=== PATIENT | female | born 1940 | race Caucasian/White ===

== ENCOUNTER 2022-08-26 12:59 | Observation (INO) | payer MEDICARE, OTHER ==
[2022-08-26] MEDS ORDERED: Ondansetron 4 MG/2 ML SDV IVPUSH ONE (13:33)
[2022-08-26] MEDS ORDERED: Sodium Chloride 0.9% 2.5 ML Syringe FLUSH PRN (13:33)
[2022-08-26] MEDS ORDERED: Sodium Chloride 0.9% 10 ML Syringe FLUSH PRN (13:33)
[2022-08-26 14:48] LABS: BLOOD UREA NITROGEN,BUN 18 mg/dL (7.0-18.0); CARBON DIOXIDE,CO2 22.8 mmol/L (21.0-32.0); CHLORIDE,CL 97 mmol/L (98-107); GLUCOSE RANDOM 171 mg/dL (74-106); POTASSIUM,K 4.2 mmol/L (3.5-5.1); SODIUM,NA 132 mmol/L (136-145)
[2022-08-26 14:51] LABS: ESTIMATED GFR 74 mL/min (>60)
[2022-08-26] MEDS ORDERED: cefTRIAXone 1 GM in Sodium Chloride 0.9% 50 ML IV SCH (16:30)
[2022-08-26] MEDS ORDERED: Polyethylene Glycol 3350 Powder 17 GM Packet PO PRN (17:56)
[2022-08-26] MEDS ORDERED: 50% Dextrose in Water 50 ML Syringe IVPUSH PRN (17:59)
[2022-08-26] MEDS ORDERED: Glucagon,Human Recombinant 1 MG Vial IM PRN (17:59)
[2022-08-26] MEDS ORDERED: Albuterol/Ipratropium 3.0-0.5 MG/3 ML Neb Soln NEB PRN (18:00)
[2022-08-26] MEDS ORDERED: Ondansetron 4 MG/2 ML SDV IVPUSH PRN (18:00)
[2022-08-26] MEDS: Insulin Aspart 100 Units/ML 3 ML Pen SUBCUT SCH (18:58)
[2022-08-26] MEDS: Enoxaparin 40 MG/0.4 ML Syringe SUBCUT SCH (18:59)
[2022-08-26] MEDS: Sodium Chloride 0.9% 1,000 ML IV SCH (19:01)
[2022-08-27] MEDS: Sodium Chloride 0.9% 1,000 ML IV SCH ×2 (04:14→11:05)
[2022-08-27] MEDS: Acetaminophen 325 MG Tab PO PRN ×2 (04:14→16:36)
[2022-08-27 06:43] LABS: CARBON DIOXIDE,CO2 22.5 mmol/L (21.0-32.0); POTASSIUM,K 3.7 mmol/L (3.5-5.1)
[2022-08-27] MEDS: Insulin Aspart 100 Units/ML 3 ML Pen SUBCUT SCH ×3 (07:02→18:24)
[2022-08-27] MEDS: Lactated Ringers 1,000 ML IV SCH ×2 (11:01→19:35)
[2022-08-27] MEDS ORDERED: Aspirin 81 MG Tab.Chew PO SCH (15:30)
[2022-08-27] MEDS ORDERED: cefTRIAXone 1 GM in Sodium Chloride 0.9% 50 ML IV SCH (17:00)
[2022-08-27] MEDS: Enoxaparin 40 MG/0.4 ML Syringe SUBCUT SCH (17:07)
[2022-08-28] MEDS: Lactated Ringers 1,000 ML IV SCH ×3 (00:14→10:23)
[2022-08-28] MEDS: Acetaminophen 325 MG Tab PO PRN (05:05)
[2022-08-28 06:28] LABS: CARBON DIOXIDE,CO2 25.2 mmol/L (21.0-32.0); POTASSIUM,K 4.1 mmol/L (3.5-5.1)
[2022-08-28] MEDS ORDERED: Levothyroxine 100 MCG Tab PO SCH (07:30)
[2022-08-28] MEDS: Insulin Aspart 100 Units/ML 3 ML Pen SUBCUT SCH (08:21)
[2022-08-29] MEDS ORDERED: BIMATOPROST EYEBOTH SCH (09:00)
[2022-08-29] MEDS ORDERED: Cholecalciferol (Vitamin D3) 25 MCG Tab PO SCH (09:00)
== END 2022-08-28 13:00 | disposition home or self-care (01) ==
LOC: MW.ED 12:59 → MW.MS 17:05
PROVIDERS: ADMIT Internal Medicine; ATTEND Internal Medicine
DX: N30.00 Acute cystitis without hematuria (principal); I10 Essential (primary) hypertension; E78.00 Pure hypercholesterolemia, unspecified; E03.9 Hypothyroidism, unspecified; E11.9 Type 2 diabetes mellitus without complications; H40.9 Unspecified glaucoma; D72.829 Elevated white blood cell count, unspecified; K52.9 Noninfective gastroenteritis and colitis, unspecified; I63.9 Cerebral infarction, unspecified; Z79.899 Other long term (current) drug therapy; Z79.890 Hormone replacement therapy; Z79.84 Long term (current) use of oral hypoglycemic drugs; Z79.82 Long term (current) use of aspirin; Z88.4 Allergy status to anesthetic agent; Z20.822 Contact with and (suspected) exposure to COVID-19; W19.XXXA Unspecified fall, initial encounter
CPT/HCPCS: 36415; 70450; 80053; 81001; 82947; 84484; 85025; 87086; 87088; 87186; 93005; 97110; 97161; 97530; A9270; J0696; J1650; J1815; J2405; J3490; J7030; J7120; U0002; 96365; 96375; 99217; 99218; 99225; 99285-25

== ENCOUNTER 2024-06-03 10:32 | Inpatient (IN) | payer MEDICARE, OTHER ==
[2024-06-03 11:34] LABS: BASOPHILS ABSOLUTE AUTO 0.06 K/uL (0.00-0.20); BASOPHILS PERCENT AUTO 0.4 % (0.0-1.0); EOSINOPHILS ABSOLUTE AUTO 0.03 K/uL (0.00-0.45); EOSINOPHILS PERCENT AUTO 0.2 % (0.0-6.0); HEMATOCRIT 41.6 % (37.0-47.0); HEMOGLOBIN 13.4 g/dL (12.0-16.0); IMMATURE GRAN ABSOLUTE AUTO 0.23 K/uL (0.00-0.05); IMMATURE GRAN PERCENT AUTO 1.3 % (0.0-0.4); LYMPHOCYTES PERCENT AUTO 5.3 % (24.0-44.0); MEAN CORPUSCULAR HEMOGLOBIN 26.7 pg (28.0-32.0); MEAN CORPUSCULAR HGB CONC 32.2 g/dL (32.0-36.0); MEAN CORPUSCULAR VOLUME 82.9 fL (83.0-99.0); MEAN PLATELET VOLUME 8.8 fL (9.4-12.3); MONOCYTES ABSOLUTE AUTO 1.12 K/uL (0.00-0.80); MONOCYTES PERCENT AUTO 6.5 % (0.0-8.0); NEUTROPHILS ABSOLUTE AUTO 14.78 K/uL (1.80-7.70); NEUTROPHILS PERCENT AUTO 86.3 % (41.0-71.0); PLATELET COUNT,PLT 334 K/uL (150-400); RED BLOOD CELL COUNT 5.02 M/uL (4.10-5.30); WHITE BLOOD CELL COUNT,WBC 17.12 K/uL (3.9-11.3)
[2024-06-03] MEDS: Sodium Chloride 0.9% 1,000 ML IV ONE ×2 (12:02→14:43)
[2024-06-03 12:03] LABS: A/G RATIO 0.7 (0.9-1.6); ALBUMIN 3.4 g/dL (3.4-5.0); BILIRUBIN TOTAL 0.6 mg/dL (0.2-1.0); CARBON DIOXIDE,CO2 25.2 mmol/L (21.0-32.0); CREATININE 1.4 mg/dL (0.6-1.0); EST CRCL DRUG DOSING (CG) 26.92 mL/min; MAGNESIUM 2.2 mg/dL (1.8-2.4); POTASSIUM,K 4.9 mmol/L (3.5-5.1); PROTEIN TOTAL,TP 8.1 g/dL (6.4-8.2)
[2024-06-03] MEDS: Ondansetron 4 MG/2 ML SDV IVPUSH ONE (12:03)
[2024-06-03] MEDS: Morphine 2 MG/ML SYRINGE IVPUSH ONE (12:05)
[2024-06-03 12:18] LABS: CORONAVIRUS COVID-19 NAA NEGATIVE (NEGATIVE); INFLUENZA A NAA NEGATIVE (NEGATIVE); INFLUENZA B NAA NEGATIVE (NEGATIVE); RESPIRATORY SYNCYTIAL VIR NAA NEGATIVE (NEGATIVE)
[2024-06-03] MEDS: Iopamidol 755 MG/ML 500 ML Multipack Bottle IVPUSH STA (12:56)
[2024-06-03] MEDS: Acetaminophen 500 MG Tab PO ONE (13:03)
[2024-06-03 13:26] LABS: APPEARANCE,URINE CLOUDY; BILIRUBIN,URINE NEGATIVE (NEGATIVE); COLOR,URINE YELLOW; GLUCOSE,URINE NEGATIVE (NEGATIVE); KETONES,URINE NEGATIVE (NEGATIVE); LEUKOCYTE ESTERASE,URINE SMALL (NEGATIVE); NITRITE,URINE NEGATIVE (NEGATIVE); OCCULT BLOOD,URINE NEGATIVE (NEGATIVE); PH,URINE 5.5 (5.0-8.0); PROTEIN,URINE NEGATIVE (NEGATIVE); UROBILINOGEN,URINE 0.2 EU/dL (<2.0)
[2024-06-03 13:37] LABS: BACTERIA,URINE 2+ (NEGATIVE); EPITHELIAL CELLS,URINE MANY (NONE-FEW); RBC,URINE 0-1 (0-2/HPF)
[2024-06-03 14:01] LABS: LACTIC ACID 2.4 mmol/L (0.4-2.0)
[2024-06-03] MEDS: Piperacillin/Tazobactam 3.375 GM in Sodium Chloride 0.9% 100 ML IV ONE (14:44)
[2024-06-03] MEDS: VANCOmycin 1.5 GM/300 ML 1.5 GM in Premix Bag 1 BAG IV ONE (15:14)
[2024-06-03] MEDS ORDERED: Naloxone 0.4 MG/ML SDV IVPUSH PRN (17:49)
[2024-06-03] MEDS ORDERED: Acetaminophen 650 MG Supp RECTAL PRN (17:49)
[2024-06-03] MEDS ORDERED: Morphine 2 MG/ML SYRINGE IVPUSH PRN (17:49)
[2024-06-03] MEDS: Piperacillin/Tazobactam 4.5 GM in Sodium Chloride 0.9% 100 ML IV SCH (18:31)
[2024-06-03] MEDS: Sodium Chloride 0.9% 1,000 ML IV SCH (18:32)
[2024-06-03] MEDS: Non-Formulary Medication 1 Each (Simvastatin 20 MG Tablet) PO SCH (20:15)
[2024-06-03] MEDS: Melatonin 3 MG Tab PO PRN (20:46)
[2024-06-03] MEDS: Acetaminophen/oxyCODONE 325-5 MG Tab PO PRN (20:46)
[2024-06-03] MEDS: Pantoprazole 40 MG in Sodium Chloride 0.9% 10 ML IVPUSH SCH (20:46)
[2024-06-04] MEDS: Ondansetron 4 MG/2 ML SDV IVPUSH PRN (02:43)
[2024-06-04] MEDS ORDERED: Non-Formulary Medication 1 Each (Levothyroxine [Synthroid] 100 MCG Tablet) PO SCH (07:30)
[2024-06-04] MEDS: Levothyroxine 100 MCG Tab PO SCH (07:37)
[2024-06-04 08:01] LABS: BASOPHILS ABSOLUTE AUTO 0.04 K/uL (0.00-0.20); BASOPHILS PERCENT AUTO 0.3 % (0.0-1.0); EOSINOPHILS ABSOLUTE AUTO 0.07 K/uL (0.00-0.45); EOSINOPHILS PERCENT AUTO 0.6 % (0.0-6.0); HEMATOCRIT 31.6 % (37.0-47.0); HEMOGLOBIN 10.3 g/dL (12.0-16.0); IMMATURE GRAN ABSOLUTE AUTO 0.04 K/uL (0.00-0.05); IMMATURE GRAN PERCENT AUTO 0.3 % (0.0-0.4); LYMPHOCYTES ABSOLUTE AUTO 0.96 K/uL (1.00-4.80); LYMPHOCYTES PERCENT AUTO 7.9 % (24.0-44.0); MEAN CORPUSCULAR HEMOGLOBIN 26.9 pg (28.0-32.0); MEAN CORPUSCULAR HGB CONC 32.6 g/dL (32.0-36.0); MEAN CORPUSCULAR VOLUME 82.5 fL (83.0-99.0); MEAN PLATELET VOLUME 8.8 fL (9.4-12.3); MONOCYTES ABSOLUTE AUTO 0.96 K/uL (0.00-0.80); MONOCYTES PERCENT AUTO 7.9 % (0.0-8.0); NEUTROPHILS ABSOLUTE AUTO 10.02 K/uL (1.80-7.70); PLATELET COUNT,PLT 227 K/uL (150-400); RED BLOOD CELL COUNT 3.83 M/uL (4.10-5.30); WHITE BLOOD CELL COUNT,WBC 12.09 K/uL (3.9-11.3)
[2024-06-04 08:27] LABS: A/G RATIO 0.7 (0.9-1.6); ALBUMIN 2.8 g/dL (3.4-5.0); BILIRUBIN TOTAL 0.4 mg/dL (0.2-1.0); CALCIUM 9.1 mg/dL (8.5-10.1); CREATININE 0.8 mg/dL (0.6-1.0); EST CRCL DRUG DOSING (CG) 47.1 mL/min; MAGNESIUM 2.1 mg/dL (1.8-2.4); POTASSIUM,K 4.5 mmol/L (3.5-5.1); PROTEIN TOTAL,TP 6.8 g/dL (6.4-8.2)
[2024-06-04] MEDS: BIMATOPROST EYEBOTH SCH (08:37)
[2024-06-04] MEDS: TIMOLOL MALEATE EYEBOTH SCH (08:37)
[2024-06-04] MEDS: Lisinopril 10 MG Tab PO SCH (08:49)
[2024-06-04] MEDS: Heparin Sodium 5,000 Units/ML Vial IVPUSH SCH (09:58)
[2024-06-04] MEDS: Heparin Sodium 5,000 Units/ML Vial SUBCUT SCH (10:00)
[2024-06-04] MEDS: VANCOmycin 1.5 GM/300 ML 1.5 GM in Premix Bag 1 BAG IV SCH (17:18)
[2024-06-04] MEDS: atorvaSTATin 10 MG Tab PO SCH (20:23)
[2024-06-05 08:17] LABS: BASOPHILS ABSOLUTE AUTO 0.04 K/uL (0.00-0.20); BASOPHILS PERCENT AUTO 0.4 % (0.0-1.0); EOSINOPHILS ABSOLUTE AUTO 0.09 K/uL (0.00-0.45); HEMATOCRIT 31.2 % (37.0-47.0); HEMOGLOBIN 10.2 g/dL (12.0-16.0); IMMATURE GRAN ABSOLUTE AUTO 0.04 K/uL (0.00-0.05); IMMATURE GRAN PERCENT AUTO 0.4 % (0.0-0.4); LYMPHOCYTES PERCENT AUTO 10.8 % (24.0-44.0); MEAN CORPUSCULAR HEMOGLOBIN 27.2 pg (28.0-32.0); MEAN CORPUSCULAR HGB CONC 32.7 g/dL (32.0-36.0); MEAN CORPUSCULAR VOLUME 83.2 fL (83.0-99.0); MEAN PLATELET VOLUME 8.8 fL (9.4-12.3); MONOCYTES ABSOLUTE AUTO 0.56 K/uL (0.00-0.80); NEUTROPHILS ABSOLUTE AUTO 7.56 K/uL (1.80-7.70); NEUTROPHILS PERCENT AUTO 81.4 % (41.0-71.0); PLATELET COUNT,PLT 221 K/uL (150-400); RED BLOOD CELL COUNT 3.75 M/uL (4.10-5.30); WHITE BLOOD CELL COUNT,WBC 9.29 K/uL (3.9-11.3)
[2024-06-05 08:40] LABS: A/G RATIO 0.6 (0.9-1.6); ALBUMIN 2.7 g/dL (3.4-5.0); BILIRUBIN TOTAL 0.5 mg/dL (0.2-1.0); CALCIUM 8.8 mg/dL (8.5-10.1); CREATININE 0.9 mg/dL (0.6-1.0); EST CRCL DRUG DOSING (CG) 41.87 mL/min
[2024-06-05 08:44] LABS: CARBON DIOXIDE,CO2 23.5 mmol/L (21.0-32.0)
[2024-06-05] MEDS ORDERED: Glucagon,Human Recombinant 1 MG Vial IM PRN (08:55)
[2024-06-05] MEDS ORDERED: 50% Dextrose in Water 50 ML Syringe IVPUSH PRN (08:55)
[2024-06-05] MEDS: Acetaminophen 325 MG Tab PO PRN (08:58)
[2024-06-05] MEDS: Insulin Aspart 100 Units/ML 3 ML Pen SUBCUT SCH (11:30)
[2024-06-05] MEDS: Polyethylene Glycol 3350 Powder 17 GM Packet PO PRN (14:16)
[2024-06-05] MEDS: BIMATOPROST EYEBOTH SCH (20:21)
[2024-06-06 06:00] LABS: BASOPHILS ABSOLUTE AUTO 0.03 K/uL (0.00-0.20); BASOPHILS PERCENT AUTO 0.3 % (0.0-1.0); EOSINOPHILS ABSOLUTE AUTO 0.14 K/uL (0.00-0.45); EOSINOPHILS PERCENT AUTO 1.6 % (0.0-6.0); HEMATOCRIT 30.6 % (37.0-47.0); HEMOGLOBIN 9.9 g/dL (12.0-16.0); IMMATURE GRAN ABSOLUTE AUTO 0.03 K/uL (0.00-0.05); IMMATURE GRAN PERCENT AUTO 0.3 % (0.0-0.4); LYMPHOCYTES ABSOLUTE AUTO 1.15 K/uL (1.00-4.80); LYMPHOCYTES PERCENT AUTO 13.4 % (24.0-44.0); MEAN CORPUSCULAR HEMOGLOBIN 26.3 pg (28.0-32.0); MEAN CORPUSCULAR HGB CONC 32.4 g/dL (32.0-36.0); MEAN CORPUSCULAR VOLUME 81.2 fL (83.0-99.0); MEAN PLATELET VOLUME 8.4 fL (9.4-12.3); MONOCYTES ABSOLUTE AUTO 0.71 K/uL (0.00-0.80); MONOCYTES PERCENT AUTO 8.3 % (0.0-8.0); NEUTROPHILS ABSOLUTE AUTO 6.54 K/uL (1.80-7.70); NEUTROPHILS PERCENT AUTO 76.1 % (41.0-71.0); PLATELET COUNT,PLT 213 K/uL (150-400); RED BLOOD CELL COUNT 3.77 M/uL (4.10-5.30)
[2024-06-06 06:48] LABS: A/G RATIO 0.6 (0.9-1.6); ALBUMIN 2.5 g/dL (3.4-5.0); BILIRUBIN TOTAL 0.5 mg/dL (0.2-1.0); CALCIUM 9.1 mg/dL (8.5-10.1); CARBON DIOXIDE,CO2 24.8 mmol/L (21.0-32.0); CREATININE 0.7 mg/dL (0.6-1.0); EST CRCL DRUG DOSING (CG) 53.83 mL/min; PROTEIN TOTAL,TP 6.7 g/dL (6.4-8.2)
[2024-06-06] MEDS: TIMOLOL MALEATE EYEBOTH SCH (08:16)
[2024-06-06] MEDS: Amoxicillin/Clavulanate K 875-125 MG Tab PO ONE (10:50)
== END 2024-06-06 15:00 | disposition home health service (06) | DRG 392 ==
LOC: MW.ED 10:32 → MW.MS 17:27
PROVIDERS: ADMIT Family Medicine; ATTEND Family Medicine
DX: K57.20 Diverticulitis of large intestine with perforation and abscess without bleeding (principal); N17.9 Acute kidney failure, unspecified; N39.0 Urinary tract infection, site not specified; E11.9 Type 2 diabetes mellitus without complications; E03.9 Hypothyroidism, unspecified; Z91.048 Other nonmedicinal substance allergy status; E78.00 Pure hypercholesterolemia, unspecified; I10 Essential (primary) hypertension; Z98.49 Cataract extraction status, unspecified eye; Z88.8 Allergy status to other drugs, medicaments and biological substances; Z75.8 Other problems related to medical facilities and other health care; Z79.82 Long term (current) use of aspirin; Z79.84 Long term (current) use of oral hypoglycemic drugs; Z79.890 Hormone replacement therapy; Z79.899 Other long term (current) drug therapy
CPT/HCPCS: 0241U; 36415; 71045; 74177; 80053; 80202; 81001; 82947; 83605; 83690; 83735; 85025; 85730; 87040; 87086; 87154; 96361; 96365; 96367; 96375; 97161; 97530; 99285; 87077; 87186; A9270-GY; J1644; J1815-GY; J2405; J2470; J2543; J3372; J3490; J7030; Q9967

== ENCOUNTER 2024-06-11 08:14 | Emergency (ER) | payer MEDICARE, OTHER ==
[2024-06-11] MEDS ORDERED: Sodium Chloride 0.9% 2.5 ML Syringe FLUSH PRN (08:21)
[2024-06-11 08:35] LABS: BASOPHILS ABSOLUTE AUTO 0.04 K/uL (0.00-0.20); BASOPHILS PERCENT AUTO 0.3 % (0.0-1.0); EOSINOPHILS ABSOLUTE AUTO 0.02 K/uL (0.00-0.45); EOSINOPHILS PERCENT AUTO 0.2 % (0.0-6.0); HEMATOCRIT 34.8 % (37.0-47.0); HEMOGLOBIN 11.1 g/dL (12.0-16.0); IMMATURE GRAN ABSOLUTE AUTO 0.06 K/uL (0.00-0.05); IMMATURE GRAN PERCENT AUTO 0.5 % (0.0-0.4); LYMPHOCYTES ABSOLUTE AUTO 1.03 K/uL (1.00-4.80); LYMPHOCYTES PERCENT AUTO 8.4 % (24.0-44.0); MEAN CORPUSCULAR HEMOGLOBIN 25.9 pg (28.0-32.0); MEAN CORPUSCULAR HGB CONC 31.9 g/dL (32.0-36.0); MEAN CORPUSCULAR VOLUME 81.1 fL (83.0-99.0); MEAN PLATELET VOLUME 8.6 fL (9.4-12.3); MONOCYTES ABSOLUTE AUTO 1.22 K/uL (0.00-0.80); NEUTROPHILS ABSOLUTE AUTO 9.88 K/uL (1.80-7.70); NEUTROPHILS PERCENT AUTO 80.6 % (41.0-71.0); PLATELET COUNT,PLT 364 K/uL (150-400); RED BLOOD CELL COUNT 4.29 M/uL (4.10-5.30); WHITE BLOOD CELL COUNT,WBC 12.25 K/uL (3.9-11.3)
[2024-06-11] MEDS: Sodium Chloride 0.9% 1,000 ML IV ONE (08:42)
[2024-06-11] MEDS: Sodium Chloride 0.9% 10 ML Syringe FLUSH PRN (08:42)
[2024-06-11 09:00] LABS: BASE EXCESS VENOUS 1.5 (-2.0-3.0); BICARBONATE,VENOUS 25 mEQ/mL (22-28); LACTIC ACID 1.2 mmol/L (0.4-2.0); PCO2 VENOUS 36 mmHG (41-51); PH,VENOUS 7.46 (7.31-7.41); PO2 VENOUS < 30 mmHG (35-45)
[2024-06-11 09:08] LABS: A/G RATIO 0.5 (0.9-1.6); ALANINE AMINOTRANSFERASE,ALT 19 IU/L (14-63); ALBUMIN 2.7 g/dL (3.4-5.0); ALKALINE PHOSPHATASE 92 U/L (46-116); ASPARTATE AMNIOTRANSFERASE,AST 12 IU/L (15-37); BILIRUBIN TOTAL 0.7 mg/dL (0.2-1.0); BLOOD UREA NITROGEN,BUN 11 mg/dL (7.0-18.0); CALCIUM 9.6 mg/dL (8.5-10.1); CARBON DIOXIDE,CO2 24.5 mmol/L (21.0-32.0); CHLORIDE,CL 98 mmol/L (98-107); CREATININE 0.9 mg/dL (0.6-1.0); EST CRCL DRUG DOSING (CG) 41.87 mL/min; GLUCOSE RANDOM 180 mg/dL (74-106); MAGNESIUM 1.8 mg/dL (1.8-2.4); POTASSIUM,K 3.7 mmol/L (3.5-5.1); PROTEIN TOTAL,TP 7.7 g/dL (6.4-8.2); SODIUM,NA 136 mmol/L (136-145); TSH ULTRASENSITIVE 3.08 uIU/mL (0.36-3.74)
[2024-06-11 09:09] LABS: ESTIMATED GFR 63 mL/min (>60)
[2024-06-11 09:42] LABS: CORONAVIRUS COVID-19 NAA NEGATIVE (NEGATIVE); INFLUENZA A NAA NEGATIVE (NEGATIVE); INFLUENZA B NAA NEGATIVE (NEGATIVE); RESPIRATORY SYNCYTIAL VIR NAA NEGATIVE (NEGATIVE)
[2024-06-11] MEDS: Iopamidol 755 MG/ML 500 ML Multipack Bottle IVPUSH STA (09:44)
[2024-06-11 09:50] LABS: APPEARANCE,URINE SLT CLOUDY; BILIRUBIN,URINE NEGATIVE (NEGATIVE); COLOR,URINE YELLOW; GLUCOSE,URINE NEGATIVE (NEGATIVE); KETONES,URINE NEGATIVE (NEGATIVE); LEUKOCYTE ESTERASE,URINE NEGATIVE (NEGATIVE); NITRITE,URINE NEGATIVE (NEGATIVE); OCCULT BLOOD,URINE NEGATIVE (NEGATIVE); PROTEIN,URINE NEGATIVE (NEGATIVE)
[2024-06-11] MEDS: Piperacillin/Tazobactam 4.5 GM in Sodium Chloride 0.9% 100 ML IV ONE (10:31)
[2024-06-11] MEDS: Ondansetron 4 MG/2 ML SDV IVPUSH ONE (12:35)
[2024-06-11] MEDS: Morphine 2 MG/ML SYRINGE IVPUSH ONE (12:35)
[2024-06-11] MEDS: Acetaminophen 500 MG Tab PO ONE (12:48)
== END 2024-06-11 13:04 ==
LOC: MW.ED 08:14
DX: K57.20 Diverticulitis of large intestine with perforation and abscess without bleeding (principal); I10 Essential (primary) hypertension; E78.00 Pure hypercholesterolemia, unspecified; E11.9 Type 2 diabetes mellitus without complications; E03.9 Hypothyroidism, unspecified; Z79.899 Other long term (current) drug therapy; Z79.82 Long term (current) use of aspirin; Z79.84 Long term (current) use of oral hypoglycemic drugs; Z88.4 Allergy status to anesthetic agent
CPT/HCPCS: 0241U; 36415; 71045; 74177; 80053; 81003; 82803; 83605; 83735; 84443; 84484; 85025; 87040; 93005; 96361; 96365; 99285; A9270; J2543; J3490; J7030; Q9967; 93010

== ENCOUNTER 2024-08-09 18:34 | Inpatient (IN) | payer MEDICARE, OTHER ==
[2024-08-09] MEDS ORDERED: Sodium Chloride 0.9% 2.5 ML Syringe FLUSH PRN (19:19)
[2024-08-09] MEDS ORDERED: Sodium Chloride 0.9% 10 ML Syringe FLUSH PRN (19:19)
[2024-08-09] MEDS: fentaNYL 50 MCG/ML SDV IVPUSH ONE (19:59)
[2024-08-09] MEDS: Lactated Ringers 1,000 ML IV SCH (19:59)
[2024-08-09] MEDS: Ciprofloxacin in D5W 400 MG in Premix Bag 1 BAG IV ONE (20:00)
[2024-08-09] MEDS: Cefepime 2 GM in Sodium Chloride 0.9% 50 ML IV STA (20:01)
[2024-08-09] MEDS: Ondansetron 4 MG/2 ML SDV IVPUSH ONE (20:01)
[2024-08-09 20:08] LABS: BASOPHILS ABSOLUTE AUTO 0.03 K/uL (0.00-0.20); BASOPHILS PERCENT AUTO 0.3 % (0.0-1.0); EOSINOPHILS ABSOLUTE AUTO 0.08 K/uL (0.00-0.45); EOSINOPHILS PERCENT AUTO 0.9 % (0.0-6.0); HEMATOCRIT 28.2 % (37.0-47.0); IMMATURE GRAN ABSOLUTE AUTO 0.03 K/uL (0.00-0.05); IMMATURE GRAN PERCENT AUTO 0.3 % (0.0-0.4); LYMPHOCYTES ABSOLUTE AUTO 2.04 K/uL (1.00-4.80); LYMPHOCYTES PERCENT AUTO 21.7 % (24.0-44.0); MEAN CORPUSCULAR HEMOGLOBIN 25.9 pg (28.0-32.0); MEAN CORPUSCULAR HGB CONC 31.9 g/dL (32.0-36.0); MEAN CORPUSCULAR VOLUME 81.3 fL (83.0-99.0); MEAN PLATELET VOLUME 8.7 fL (9.4-12.3); MONOCYTES PERCENT AUTO 10.6 % (0.0-8.0); NEUTROPHILS ABSOLUTE AUTO 6.21 K/uL (1.80-7.70); NEUTROPHILS PERCENT AUTO 66.2 % (41.0-71.0); PLATELET COUNT,PLT 269 K/uL (150-400); RED BLOOD CELL COUNT 3.47 M/uL (4.10-5.30); WHITE BLOOD CELL COUNT,WBC 9.39 K/uL (3.9-11.3)
[2024-08-09 20:33] LABS: A/G RATIO 0.6 (0.9-1.6); ALANINE AMINOTRANSFERASE,ALT 15 IU/L (14-63); ALBUMIN 2.9 g/dL (3.4-5.0); ALKALINE PHOSPHATASE 69 U/L (46-116); ASPARTATE AMNIOTRANSFERASE,AST 17 IU/L (15-37); BILIRUBIN TOTAL 0.5 mg/dL (0.2-1.0); BLOOD UREA NITROGEN,BUN 11 mg/dL (7.0-18.0); C-REACTIVE PROTEIN 16.18 mg/dL (<0.3); CALCIUM 9.1 mg/dL (8.5-10.1); CARBON DIOXIDE,CO2 27.2 mmol/L (21.0-32.0); CHLORIDE,CL 101 mmol/L (98-107); CREATININE 0.9 mg/dL (0.6-1.0); ESTIMATED GFR 63 mL/min (>60); GLUCOSE RANDOM 142 mg/dL (74-106); LIPASE 30 U/L (16-77); POTASSIUM,K 4.4 mmol/L (3.5-5.1); PROTEIN TOTAL,TP 7.5 g/dL (6.4-8.2); SODIUM,NA 138 mmol/L (136-145)
[2024-08-09 20:38] LABS: LACTIC ACID 1.1 mmol/L (0.4-2.0)
[2024-08-09] MEDS: Iopamidol 755 Mg/ML 100 ML Bottle IVPUSH ONE (21:18)
[2024-08-09 21:55] LABS: BILIRUBIN,URINE NEGATIVE (NEGATIVE); GLUCOSE,URINE NEGATIVE (NEGATIVE); KETONES,URINE NEGATIVE (NEGATIVE); LEUKOCYTE ESTERASE,URINE NEGATIVE (NEGATIVE); NITRITE,URINE NEGATIVE (NEGATIVE); OCCULT BLOOD,URINE NEGATIVE (NEGATIVE); PH,URINE 6.5 (5.0-8.0); PROTEIN,URINE NEGATIVE (NEGATIVE); UROBILINOGEN,URINE 0.2 EU/dL (<2.0)
[2024-08-09 21:56] LABS: APPEARANCE,URINE CLEAR; COLOR,URINE YELLOW
[2024-08-10] MEDS: metroNIDAZOLE/Normal Saline 500 MG in Premix Bag 1 BAG IV ONE (00:06)
[2024-08-10] MEDS ORDERED: Naloxone 0.4 MG/ML SDV IVPUSH PRN (00:16)
[2024-08-10] MEDS: Sodium Chloride 0.9% 1,000 ML IV SCH (01:41)
[2024-08-10] MEDS: Morphine 2 MG/ML SYRINGE IVPUSH PRN (03:48)
[2024-08-10] MEDS: Cefepime 2 GM in Sodium Chloride 0.9% 50 ML IV SCH ×3 (03:58→17:07)
[2024-08-10] MEDS ORDERED: Polyethylene Glycol 3350 Powder 17 GM Packet PO PRN (04:11)
[2024-08-10] MEDS ORDERED: Acetaminophen 325 MG Tab PO PRN (04:11)
[2024-08-10] MEDS ORDERED: Ondansetron 4 MG/2 ML SDV IVPUSH PRN (04:11)
[2024-08-10] MEDS ORDERED: Melatonin 3 MG Tab PO PRN (04:11)
[2024-08-10] MEDS ORDERED: Acetaminophen 650 MG Supp RECTAL PRN (04:11)
[2024-08-10] MEDS ORDERED: 50% Dextrose in Water 50 ML Syringe IVPUSH PRN (04:15)
[2024-08-10] MEDS ORDERED: Glucagon,Human Recombinant 1 MG Vial IM PRN (04:15)
[2024-08-10 06:35] LABS: BASOPHILS ABSOLUTE AUTO 0.02 K/uL (0.00-0.20); BASOPHILS PERCENT AUTO 0.3 % (0.0-1.0); EOSINOPHILS ABSOLUTE AUTO 0.06 K/uL (0.00-0.45); EOSINOPHILS PERCENT AUTO 0.9 % (0.0-6.0); HEMATOCRIT 27.3 % (37.0-47.0); HEMOGLOBIN 8.6 g/dL (12.0-16.0); IMMATURE GRAN ABSOLUTE AUTO 0.02 K/uL (0.00-0.05); IMMATURE GRAN PERCENT AUTO 0.3 % (0.0-0.4); LYMPHOCYTES ABSOLUTE AUTO 1.07 K/uL (1.00-4.80); LYMPHOCYTES PERCENT AUTO 15.3 % (24.0-44.0); MEAN CORPUSCULAR HEMOGLOBIN 25.8 pg (28.0-32.0); MEAN CORPUSCULAR HGB CONC 31.5 g/dL (32.0-36.0); MEAN PLATELET VOLUME 9.1 fL (9.4-12.3); MONOCYTES ABSOLUTE AUTO 0.76 K/uL (0.00-0.80); MONOCYTES PERCENT AUTO 10.9 % (0.0-8.0); NEUTROPHILS ABSOLUTE AUTO 5.05 K/uL (1.80-7.70); NEUTROPHILS PERCENT AUTO 72.3 % (41.0-71.0); PLATELET COUNT,PLT 253 K/uL (150-400); RED BLOOD CELL COUNT 3.33 M/uL (4.10-5.30); WHITE BLOOD CELL COUNT,WBC 6.98 K/uL (3.9-11.3)
[2024-08-10 06:50] LABS: CALCIUM 8.9 mg/dL (8.5-10.1); CARBON DIOXIDE,CO2 26.1 mmol/L (21.0-32.0); CREATININE 0.8 mg/dL (0.6-1.0); EST CRCL DRUG DOSING (CG) 47.1 mL/min; MAGNESIUM 1.9 mg/dL (1.8-2.4)
[2024-08-10] MEDS: Insulin Aspart 100 Units/ML 3 ML Pen SUBCUT SCH (07:54)
[2024-08-10] MEDS ORDERED: metroNIDAZOLE/Normal Saline 500 MG in Premix Bag 1 BAG IV SCH (08:00)
[2024-08-10] MEDS: metroNIDAZOLE/Normal Saline 500 MG in Premix Bag 1 BAG IV SCH (08:07)
[2024-08-11] MEDS: Cefepime 2 GM Vial ONE (04:53)
[2024-08-11] MEDS: Morphine 2 MG/ML SYRINGE IVPUSH PRN (06:51)
[2024-08-11 07:31] LABS: BASOPHILS ABSOLUTE AUTO 0.02 K/uL (0.00-0.20); BASOPHILS PERCENT AUTO 0.4 % (0.0-1.0); EOSINOPHILS ABSOLUTE AUTO 0.14 K/uL (0.00-0.45); EOSINOPHILS PERCENT AUTO 2.8 % (0.0-6.0); HEMATOCRIT 25.5 % (37.0-47.0); HEMOGLOBIN 8.1 g/dL (12.0-16.0); IMMATURE GRAN ABSOLUTE AUTO 0.03 K/uL (0.00-0.05); IMMATURE GRAN PERCENT AUTO 0.6 % (0.0-0.4); LYMPHOCYTES ABSOLUTE AUTO 1.34 K/uL (1.00-4.80); LYMPHOCYTES PERCENT AUTO 27.1 % (24.0-44.0); MEAN CORPUSCULAR HGB CONC 31.8 g/dL (32.0-36.0); MEAN PLATELET VOLUME 8.7 fL (9.4-12.3); MONOCYTES ABSOLUTE AUTO 0.49 K/uL (0.00-0.80); MONOCYTES PERCENT AUTO 9.9 % (0.0-8.0); NEUTROPHILS ABSOLUTE AUTO 2.92 K/uL (1.80-7.70); NEUTROPHILS PERCENT AUTO 59.2 % (41.0-71.0); PLATELET COUNT,PLT 215 K/uL (150-400); RED BLOOD CELL COUNT 3.11 M/uL (4.10-5.30); WHITE BLOOD CELL COUNT,WBC 4.94 K/uL (3.9-11.3)
[2024-08-11 07:54] LABS: A/G RATIO 0.6 (0.9-1.6); ALBUMIN 2.4 g/dL (3.4-5.0); BILIRUBIN TOTAL 0.4 mg/dL (0.2-1.0); CALCIUM 8.7 mg/dL (8.5-10.1); CREATININE 0.7 mg/dL (0.6-1.0); EST CRCL DRUG DOSING (CG) 53.83 mL/min; POTASSIUM,K 3.9 mmol/L (3.5-5.1); PROTEIN TOTAL,TP 6.3 g/dL (6.4-8.2)
[2024-08-11] MEDS ORDERED: Albuterol/Ipratropium 3.0-0.5 MG/3 ML Neb Soln NEB SCH (14:00)
== END 2024-08-11 14:11 | disposition home or self-care (01) | DRG 372 ==
LOC: MW.ED 18:34 → MW.MS 08-10 00:04
PROVIDERS: ADMIT Family Medicine; ATTEND Family Medicine
DX: L02.211 Cutaneous abscess of abdominal wall (principal); K65.1 Peritoneal abscess; K57.80 Diverticulitis of intestine, part unspecified, with perforation and abscess without bleeding; Z66 Do not resuscitate; E11.9 Type 2 diabetes mellitus without complications; E78.5 Hyperlipidemia, unspecified; I10 Essential (primary) hypertension; E78.00 Pure hypercholesterolemia, unspecified; Z88.8 Allergy status to other drugs, medicaments and biological substances; E03.9 Hypothyroidism, unspecified; D64.9 Anemia, unspecified; Z79.84 Long term (current) use of oral hypoglycemic drugs; Z88.6 Allergy status to analgesic agent; Z79.82 Long term (current) use of aspirin; Z79.899 Other long term (current) drug therapy; Z79.2 Long term (current) use of antibiotics; Z98.49 Cataract extraction status, unspecified eye
CPT/HCPCS: 36415; 70450; 74177; 80053; 81003; 83605; 83690; 85025; 86140; 87040 ×2; 87086; 96365; 96367; 96375; 99285; J0692; J0744; J2405; J3010; J3490; J7120; Q9967; 80048; 82947; 83735; 99223; 99239; 99284; J1815-GY; J1836; J2270; J7030

== ENCOUNTER 2024-10-01 08:49 | Inpatient (IN) | payer MEDICARE, OTHER ==
[2024-10-01 09:17] LABS: BASOPHILS ABSOLUTE AUTO 0.05 K/uL (0.00-0.20); BASOPHILS PERCENT AUTO 0.5 % (0.0-1.0); EOSINOPHILS ABSOLUTE AUTO 0.09 K/uL (0.00-0.45); EOSINOPHILS PERCENT AUTO 0.8 % (0.0-6.0); HEMATOCRIT 37.4 % (37.0-47.0); HEMOGLOBIN 12.7 g/dL (12.0-16.0); IMMATURE GRAN ABSOLUTE AUTO 0.02 K/uL (0.00-0.05); IMMATURE GRAN PERCENT AUTO 0.2 % (0.0-0.4); LYMPHOCYTES ABSOLUTE AUTO 1.57 K/uL (1.00-4.80); LYMPHOCYTES PERCENT AUTO 14.2 % (24.0-44.0); MEAN CORPUSCULAR HEMOGLOBIN 26.5 pg (28.0-32.0); MEAN CORPUSCULAR VOLUME 78.1 fL (83.0-99.0); MEAN PLATELET VOLUME 8.6 fL (9.4-12.3); MONOCYTES ABSOLUTE AUTO 0.72 K/uL (0.00-0.80); MONOCYTES PERCENT AUTO 6.5 % (0.0-8.0); NEUTROPHILS ABSOLUTE AUTO 8.58 K/uL (1.80-7.70); NEUTROPHILS PERCENT AUTO 77.8 % (41.0-71.0); PLATELET COUNT,PLT 340 K/uL (150-400); RED BLOOD CELL COUNT 4.79 M/uL (4.10-5.30); WHITE BLOOD CELL COUNT,WBC 11.03 K/uL (3.9-11.3)
[2024-10-01] MEDS: Famotidine 20 MG/2 ML SDV IVPUSH ONE (09:17)
[2024-10-01] MEDS: Ondansetron 4 MG/2 ML SDV IVPUSH ONE (09:17)
[2024-10-01] MEDS: Sodium Chloride 0.9% 1,000 ML IV ONE (09:18)
[2024-10-01 09:47] LABS: A/G RATIO 0.8 (0.9-1.6); ALBUMIN 3.7 g/dL (3.4-5.0); BILIRUBIN TOTAL 0.5 mg/dL (0.2-1.0); CALCIUM 10.1 mg/dL (8.5-10.1); CARBON DIOXIDE,CO2 24.2 mmol/L (21.0-32.0); CREATININE 0.9 mg/dL (0.6-1.0); EST CRCL DRUG DOSING (CG) 45.25 mL/min; POTASSIUM,K 5.2 mmol/L (3.5-5.1); PROTEIN TOTAL,TP 8.4 g/dL (6.4-8.2)
[2024-10-01 09:57] LABS: APPEARANCE,URINE CLEAR; BILIRUBIN,URINE NEGATIVE (NEGATIVE); COLOR,URINE YELLOW; GLUCOSE,URINE NEGATIVE (NEGATIVE); KETONES,URINE NEGATIVE (NEGATIVE); LEUKOCYTE ESTERASE,URINE SMALL (NEGATIVE); NITRITE,URINE NEGATIVE (NEGATIVE); OCCULT BLOOD,URINE MODERATE (NEGATIVE); PROTEIN,URINE NEGATIVE (NEGATIVE); UROBILINOGEN,URINE 0.2 EU/dL (<2.0)
[2024-10-01] MEDS: diphenhydrAMINE 50 MG/ML SDV IVPUSH ONE (09:58)
[2024-10-01] MEDS: Metoclopramide 10 MG/2 ML SDV IVPUSH ONE (09:58)
[2024-10-01 10:07] LABS: EPITHELIAL CELLS,URINE FEW (NONE-FEW); RBC,URINE 0-2 (0-2/HPF)
[2024-10-01 10:08] LABS: BACTERIA,URINE 1+ (NEGATIVE); MUCUS,URINE LIGHT (NONE-MOD)
[2024-10-01] MEDS: Metoclopramide 10 MG/2 ML SDV IM ONE (10:12)
[2024-10-01] MEDS: cefTRIAXone 2 GM in Sodium Chloride 0.9% 50 ML IV ONE (10:20)
[2024-10-01] MEDS: Iopamidol 755 MG/ML 500 ML Multipack Bottle IVPUSH STA (11:12)
[2024-10-01] MEDS ORDERED: Ondansetron 4 MG/2 ML SDV IVPUSH PRN (14:09)
[2024-10-01] MEDS ORDERED: Sodium Chloride 0.9% 10 ML Syringe FLUSH PRN (14:09)
[2024-10-01] MEDS ORDERED: Sodium Chloride 0.9% 2.5 ML Syringe FLUSH PRN (14:09)
[2024-10-01 14:52] LABS: CALCIUM 9.5 mg/dL (8.5-10.1); CARBON DIOXIDE,CO2 22.6 mmol/L (21.0-32.0); CREATININE 0.9 mg/dL (0.6-1.0); EST CRCL DRUG DOSING (CG) 45.25 mL/min; POTASSIUM,K 4.9 mmol/L (3.5-5.1)
[2024-10-01] MEDS ORDERED: 50% Dextrose in Water 50 ML Syringe IVPUSH PRN (15:10)
[2024-10-01] MEDS ORDERED: Glucagon,Human Recombinant 1 MG Vial IM PRN (15:10)
[2024-10-01] MEDS: Pantoprazole 40 MG in Sodium Chloride 0.9% 10 ML IVPUSH SCH (15:36)
[2024-10-01] MEDS: Dicyclomine 10 MG Cap PO ONE (15:36)
[2024-10-01] MEDS ORDERED: Methocarbamol 750 MG Tab PO PRN (15:47)
[2024-10-01] MEDS: Heparin Sodium 5,000 Units/ML Vial SUBCUT SCH (17:00)
[2024-10-01] MEDS: Insulin Aspart 100 Units/ML 3 ML Pen SUBCUT SCH (17:31)
[2024-10-01 20:47] LABS: CALCIUM 9.2 mg/dL (8.5-10.1); CARBON DIOXIDE,CO2 20.9 mmol/L (21.0-32.0); EST CRCL DRUG DOSING (CG) 40.72 mL/min; POTASSIUM,K 4.9 mmol/L (3.5-5.1)
[2024-10-01] MEDS: Gabapentin 300 MG Cap PO SCH (21:00)
[2024-10-01] MEDS: atorvaSTATin 10 MG Tab PO SCH (21:00)
[2024-10-01] MEDS: Acetaminophen 325 MG Tab PO PRN (23:24)
[2024-10-02 02:23] LABS: CALCIUM 9.4 mg/dL (8.5-10.1); CARBON DIOXIDE,CO2 22.5 mmol/L (21.0-32.0); EST CRCL DRUG DOSING (CG) 40.72 mL/min; POTASSIUM,K 4.9 mmol/L (3.5-5.1)
[2024-10-02] MEDS: Levothyroxine 100 MCG Tab PO SCH (05:46)
[2024-10-02] MEDS: Heparin Sodium 5,000 Units/ML Vial SUBCUT SCH (05:46)
[2024-10-02] MEDS: Timolol Maleate 0.5% Ophth Soln 5 ML Bottle EYEBOTH SCH (08:11)
[2024-10-02 08:49] LABS: BASOPHILS ABSOLUTE AUTO 0.07 K/uL (0.00-0.20); BASOPHILS PERCENT AUTO 1.1 % (0.0-1.0); EOSINOPHILS ABSOLUTE AUTO 0.12 K/uL (0.00-0.45); EOSINOPHILS PERCENT AUTO 1.8 % (0.0-6.0); HEMATOCRIT 34.6 % (37.0-47.0); HEMOGLOBIN 11.4 g/dL (12.0-16.0); IMMATURE GRAN ABSOLUTE AUTO 0.02 K/uL (0.00-0.05); IMMATURE GRAN PERCENT AUTO 0.3 % (0.0-0.4); LYMPHOCYTES ABSOLUTE AUTO 1.62 K/uL (1.00-4.80); LYMPHOCYTES PERCENT AUTO 24.4 % (24.0-44.0); MEAN CORPUSCULAR HEMOGLOBIN 26.6 pg (28.0-32.0); MEAN CORPUSCULAR HGB CONC 32.9 g/dL (32.0-36.0); MEAN CORPUSCULAR VOLUME 80.8 fL (83.0-99.0); MEAN PLATELET VOLUME 9.2 fL (9.4-12.3); MONOCYTES ABSOLUTE AUTO 0.39 K/uL (0.00-0.80); MONOCYTES PERCENT AUTO 5.9 % (0.0-8.0); NEUTROPHILS ABSOLUTE AUTO 4.43 K/uL (1.80-7.70); NEUTROPHILS PERCENT AUTO 66.5 % (41.0-71.0); PLATELET COUNT,PLT 285 K/uL (150-400); RED BLOOD CELL COUNT 4.28 M/uL (4.10-5.30); WHITE BLOOD CELL COUNT,WBC 6.65 K/uL (3.9-11.3)
[2024-10-02 09:06] LABS: CALCIUM 9.7 mg/dL (8.5-10.1); CARBON DIOXIDE,CO2 22.6 mmol/L (21.0-32.0); EST CRCL DRUG DOSING (CG) 40.72 mL/min; POTASSIUM,K 4.7 mmol/L (3.5-5.1)
[2024-10-02] MEDS: Sodium Chloride 1 GM Tab PO SCH (10:07)
[2024-10-02] MEDS: Fluticasone NASAL Spray 16 GM Bottle NASBOTH SCH (11:35)
[2024-10-02 14:31] LABS: CALCIUM 9.3 mg/dL (8.5-10.1); CARBON DIOXIDE,CO2 24.5 mmol/L (21.0-32.0); CREATININE 0.8 mg/dL (0.6-1.0); EST CRCL DRUG DOSING (CG) 50.9 mL/min; POTASSIUM,K 4.9 mmol/L (3.5-5.1)
[2024-10-02] MEDS: Sodium Chloride 0.9% 1,000 ML IV SCH (17:04)
[2024-10-03 06:01] LABS: BASOPHILS ABSOLUTE AUTO 0.04 K/uL (0.00-0.20); EOSINOPHILS ABSOLUTE AUTO 0.22 K/uL (0.00-0.45); EOSINOPHILS PERCENT AUTO 5.5 % (0.0-6.0); HEMATOCRIT 30.8 % (37.0-47.0); HEMOGLOBIN 10.2 g/dL (12.0-16.0); IMMATURE GRAN ABSOLUTE AUTO 0.01 K/uL (0.00-0.05); IMMATURE GRAN PERCENT AUTO 0.3 % (0.0-0.4); LYMPHOCYTES ABSOLUTE AUTO 1.87 K/uL (1.00-4.80); MEAN CORPUSCULAR HEMOGLOBIN 26.7 pg (28.0-32.0); MEAN CORPUSCULAR HGB CONC 33.1 g/dL (32.0-36.0); MEAN CORPUSCULAR VOLUME 80.6 fL (83.0-99.0); MEAN PLATELET VOLUME 9.3 fL (9.4-12.3); MONOCYTES ABSOLUTE AUTO 0.41 K/uL (0.00-0.80); MONOCYTES PERCENT AUTO 10.3 % (0.0-8.0); NEUTROPHILS ABSOLUTE AUTO 1.43 K/uL (1.80-7.70); NEUTROPHILS PERCENT AUTO 35.9 % (41.0-71.0); PLATELET COUNT,PLT 226 K/uL (150-400); RED BLOOD CELL COUNT 3.82 M/uL (4.10-5.30); WHITE BLOOD CELL COUNT,WBC 3.98 K/uL (3.9-11.3)
[2024-10-03 06:17] LABS: CALCIUM 9.3 mg/dL (8.5-10.1); CARBON DIOXIDE,CO2 22.2 mmol/L (21.0-32.0); CREATININE 0.8 mg/dL (0.6-1.0); EST CRCL DRUG DOSING (CG) 50.9 mL/min; MAGNESIUM 2.2 mg/dL (1.8-2.4); POTASSIUM,K 4.7 mmol/L (3.5-5.1)
[2024-10-03] MEDS: Pantoprazole 40 MG Tab.CR PO SCH (06:31)
== END 2024-10-03 13:10 | DRG 641 ==
LOC: MW.ED 08:49 → MW.MS 11:39
PROVIDERS: ADMIT Internal Medicine; ATTEND Internal Medicine
DX: N30.00 Acute cystitis without hematuria (principal); R11.2 Nausea with vomiting, unspecified; E87.1 Hypo-osmolality and hyponatremia; H26.9 Unspecified cataract; E78.00 Pure hypercholesterolemia, unspecified; I10 Essential (primary) hypertension; R33.9 Retention of urine, unspecified; Z66 Do not resuscitate; Z79.890 Hormone replacement therapy; E11.9 Type 2 diabetes mellitus without complications; E03.9 Hypothyroidism, unspecified; Z98.49 Cataract extraction status, unspecified eye; Z88.4 Allergy status to anesthetic agent; Z79.82 Long term (current) use of aspirin; Z79.02 Long term (current) use of antithrombotics/antiplatelets; Z79.899 Other long term (current) drug therapy; Z79.84 Long term (current) use of oral hypoglycemic drugs; Z98.890 Other specified postprocedural states
CPT/HCPCS: 36415; 74177; 74177-26; 80048; 80053; 81001; 82947; 83605; 83690; 83735; 85025; 87045; 87046; 87086; 87324; 87428-QW; 87449; 87899; 93005; 93010; 96361; 96365; 96375; 99222; 99232; 99238; 99284; 99285-25; A9270-GY; J0696; J1200; J1644; J1815-GY; J2405; J2470; J2765; J3490; J7030; Q9967